=== PATIENT | male | born 1955 | race Caucasian/White ===

== ENCOUNTER 2017-04-04 16:27 | Emergency (ER) | payer MEDICAID ==
[2017-04-04] MEDS ORDERED: methylPREDNISolone Sodium Succinate 125 MG/2 ML SDV IVPUSH ONE (16:50)
[2017-04-04] MEDS ORDERED: Albuterol/Ipratropium 3.0-0.5 MG/3 ML Neb Soln NEB ONE (16:50)
--- NOTE | 2017-04-04 17:13 | EDM.PDOC ---
<SridharZaire - Last Filed: 04/04/17 22:54> ED HPI GENERAL MEDICAL PROBLEM - General Chief Complaint: Respiratory Problem Stated Complaint: HIGH BP Time Seen by Provider: 04/04/17 16:27 Source of Information: Reports: Patient, Family, Old Records - History of Present Illness INITIAL COMMENTS - FREE TEXT/NARRATIVE: Interval Note on Gregor Wheeler: Seen in ED per Dr Burris for management of week long chest congestion and Clinic reported elevated BP. He had taken ASA 160 mg today po with maintenance meds. He was given an Albuteral Neb and screening labs , with some improvement in chest congestion. His BP 177/125 with VR 137 on admission to ED has not improved following labetolol 150 mg in divided doses over the 90 min. 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 A subsequent Troponin I 0.022, BNP 2154, TSH 3.19. Case was discussed with Dr. Chen-hospitalist and Dr Max-Cardiology regarding possible STEMI, and he will be transferred by ground ambulance to Cardiology for possible PCI. All questions were addressed with the family. - Related Data Allergies Allergy/AdvReac Type Severity Reaction Status Date / Time No Known Allergies Allergy Verified 04/04/17 18:23 Home Meds: Home Meds Albuterol [Proair HFA] 2 puff INH Q4HR PRN 08/16/15 [History] Lisinopril [Prinivil] 5 mg PO DAILY 08/16/15 [History] Oxybutynin Chloride [Oxybutynin Chloride ER] 10 mg PO DAILY 08/16/15 [History] Sertraline HCl 200 mg PO DAILY 08/16/15 [History] Simvastatin 40 mg PO BEDTIME 08/16/15 [History] Tiotropium [Spiriva Handihaler] 1 dose INH DAILY 08/16/15 [History] Aspirin [Ecotrin] 162 mg PO DAILY 03/27/16 [History] Multivitamin with Minerals [Multiple Vitamin] 1 tab PO DAILY 03/27/16 [History] ED ROS GENERAL - Review of Systems Review Of Systems: ROS reveals no pertinent complaints other than HPI. ED EXAM, GENERAL - Physical Exam Exam: See Below Exam Limited By: No Limitations General Appearance: Alert, WD/WN, No Apparent Distress Eye Exam: Bilateral Eye: EOMI, Normal Inspection, PERRL Ears: Normal External Exam Nose: Normal Inspection Throat/Mouth: Normal Inspection, Normal Oropharynx Head: Atraumatic Neck: Normal Inspection, Supple, Non-Tender, Full Range of Motion Respiratory/Chest: No Respiratory Distress, No Accessory Muscle Use, Chest Non- Tender, Decreased Breath Sounds Cardiovascular: Normal Peripheral Pulses, No Edema, No Murmur, No Rub, Tachycardia GI/Abdominal: Normal Bowel Sounds, Soft, Non-Tender, No Organomegaly, No Distention, No Mass, Other (corpulent) (Male) Exam: Normal Inspection Rectal (Males) Exam: Deferred Back Exam: Normal Inspection Extremities: Normal Inspection Neurological: Alert, Oriented, CN II-XII Intact, No Motor/Sensory Deficits Psychiatric: Normal Affect, Normal Mood Skin Exam: Warm, Dry Lymphatic: No Adenopathy Course - Vital Signs Last Recorded V/S: Last Vital Signs Temp 36.1 C 04/04/17 22:00 Pulse 121 H 04/04/17 22:00 Resp 18 04/04/17 22:00 BP 150/118 H 04/04/17 22:00 Pulse Ox 95 04/04/17 22:00 - Orders/Labs/Meds Orders: Active Orders 24 hr Category Date Time Status EKG Documentation Completion [RC] ASDIRECTED Care 04/04/17 20:36 Active EKG 12 Lead [EK] Routine Ther 04/04/17 20:36 Ordered Labs: Laboratory Tests 04/04/17 04/04/17 04/04/17 Range/Units 17:00 17:00 17:00 WBC 8.0 (4.5-12.0) X10-3/uL RBC 5.45 (4.30-5.75) x10(6)uL Hgb 15.0 (11.5-15.5) g/dL Hct 45.8 (30.0-51.3) % MCV 84.0 (80-96) fL MCH 27.5 L (27.7-33.6) pg MCHC 32.7 (32.2-35.4) g/dL RDW 14.7 (11.5-15.5) % Plt Count 207 (125-369) X10(3)uL MPV 8.6 (7.4-10.4) fL Neut % (Auto) 76.9 (46-82) % Lymph % (Auto) 16.8 (13-37) % Toombs % (Auto) 5.6 (4-12) % Eos % (Auto) 0 L (1.0-5.0) % Baso % (Auto) 0 (0-2) % Neut # (Auto) 6.3 (1.6-8.3) # Lymph # (Auto) 1.3 (0.6-5.0) # Toombs # (Auto) 0.4 (0.0-1.3) # Eos # (Auto) 0.0 (0.0-0.8) # Baso # (Auto) 0.0 (0.0-0.2) # Sodium 140 (135-145) mmol/L Potassium 3.9 (3.5-5.3) mmol/L Chloride 102 (100-110) mmol/L Carbon Dioxide 28 (21-32) mmol/L BUN 12 (7-18) mg/dL Creatinine 0.8 (0.70-1.30) mg/dL Est Cr Clr Drug Dosing 92.63 mL/min Estimated GFR (MDRD) > 60 (>60) BUN/Creatinine Ratio 15.0 (9-20) Glucose 110 (80-116) mg/dL Calcium 9.4 (8.6-10.2) mg/dL Troponin I 0.022 (<0.017-0.056) ng/mL NT-Pro-B Natriuret Pep 2154 H* (<=125) pg/mL TSH, Ultra Sensitive 3.19 (0.36-3.74) IU/mL Urine Color (YELLOW) Urine Appearance (CLEAR) Urine pH (5.0-6.5) Ur Specific [place] (1.010-1.025) Urine Protein (NEGATIVE) mg/dL Urine Glucose (UA) (NEGATIVE) mg/dL Urine Ketones (NEGATIVE) mg/dL Urine Occult Blood (NEGATIVE) Urine Nitrite (NEGATIVE) Urine Bilirubin (NEGATIVE) Urine Urobilinogen (NEGATIVE) mg/dL Ur Leukocyte Esterase (NEGATIVE) Urine RBC (0) Urine WBC (0) Ur Squamous Epith Cells (NS,R,O) Urine Bacteria (NS) Urine Mucus (NS) 04/04/ Range/Units 18:30 WBC (4.5-12.0) X10-3/uL RBC (4.30-5.75) x10(6)uL Hgb (11.5-15.5) g/dL Hct (30.0-51.3) % MCV (80-96) fL MCH (27.7-33.6) pg MCHC (32.2-35.4) g/dL RDW (11.5-15.5) % Plt Count (125-369) X10(3)uL MPV (7.4-10.4) fL Neut % (Auto) (46-82) % Lymph % (Auto) (13-37) % [place]ombs % (Auto) (4-12) % Eos % (Auto) (1.0-5.0) % Baso % (Auto) (0-2) % Neut # (Auto) (1.6-8.3) # Lymph # (Auto) (0.6-5.0) # Toombs # (Auto) (0.0-1.3) # Eos # (Auto) (0.0-0.8) # Baso # (Auto) (0.0-0.2) # Sodium (135-145) mmol/L Potassium (3.5-5.3) mmol/L Chloride (100-110) mmol/L Carbon Dioxide (21-32) mmol/L BUN (7-18) mg/dL Creatinine (0.70-1.30) mg/dL Est Cr Clr Drug Dosing mL/min Estimated GFR (MDRD) (>60) BUN/Creatinine Ratio (9-20) Glucose (80-116) mg/dL Calcium (8.6-10.2) mg/dL Troponin I (<0.017-0.056) ng/mL NT-Pro-B Natriuret Pep (<=125) pg/mL TSH, Ultra Sensitive (0.36-3.74) IU/mL Urine Color Yellow (YELLOW) Urine Appearance Clear (CLEAR) Urine pH 5.0 (5.0-6.5) Ur Specific [place] 1.020 (1.010-1.025) Urine Protein Trace (NEGATIVE) mg/dL Urine Glucose (UA) Normal (NEGATIVE) mg/dL Urine Ketones Negative (NEGATIVE) mg/dL Urine Occult Blood Negative (NEGATIVE) Urine Nitrite Negative (NEGATIVE) Urine Bilirubin Small H (NEGATIVE) Urine Urobilinogen 4 H (NEGATIVE) mg/dL Ur Leukocyte Esterase Negative (NEGATIVE) Urine RBC 0-5 (0) Urine WBC 0-5 (0) Ur Squamous Epith Cells Rare (NS,R,O) Urine Bacteria Few H (NS) Urine Mucus Moderate H (NS) Meds: Medications Discontinued Medications Generic Name Dose Route Start Last Admin Trade Name Freq PRN Reason Stop Dose Admin Albuterol/Ipratropium 3 ml 04/04/17 16:50 04/04/17 17:24 Duoneb 3.0-0.5 Mg/3 Ml NEB 04/04/17 16:51 3 ml ONETIME ONE Administration Labetalol HCl 10 mg 04/04/17 18:33 04/04/17 18:54 Normodyne IVPUSH 04/04/17 18:34 10 mg ONETIME STA Administration Protocol Labetalol HCl 20 mg 04/04/17 19:30 04/04/17 19:39 Normodyne IVPUSH 04/04/17 19:31 20 mg ONETIME ONE Administration Protocol Labetalol HCl 40 mg 04/04/17 20:10 04/04/17 20:30 Normodyne IVPUSH 04/04/17 20:11 40 mg ONETIME ONE Administration Protocol Labetalol HCl 40 mg 04/04/17 21:14 04/04/17 21:16 Normodyne IVPUSH 04/04/17 21:15 40 mg ONETIME ONE Administration Protocol Methylprednisolone Sodium Succinate 125 mg 04/04/17 16:50 04/04/17 17:22 Solu-Medrol IVPUSH 04/04/17 16:51 125 mg ONETIME ONE Administration Sodium Chloride 10 ml 04/04/17 16:46 04/04/17 21:17 Saline Flush FLUSH 10 ml ASDIRECTED PRN Administration Keep Vein Open Departure - Departure Time of Disposition: 22:30 Disposition: DC/Tfer to Other 70 Condition: Poor Clinical Impression: STEMI (ST elevation myocardial infarction) - Discharge Information Referrals: Nathan Monteiro MD [Primary Care Provider] - Forms: ED Department Discharge - Problem List & Annotations (1) STEMI (ST elevation myocardial infarction) SNOMED Code(s): 173145410 Code(s): I21.3 - ST ELEVATION (STEMI) MYOCARDIAL INFARCTION OF [facility] SITE Status: Acute Annotation/Comment:: 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 QualifierTitle: Involved coronary artery: unspecified coronary artery Qualified Code(s): I21.3 - ST elevation (STEMI) myocardial infarction of unspecified site - Problem List Review Problem List Initiated/Reviewed/Updated: Yes - Assessment/Plan Plan: Follow up Cardiology. <Yovanny Burris Elke - Last Filed: 04/05/17 20:35> ED HPI GENERAL MEDICAL PROBLEM - General Source of Information: Reports: Patient, Family Past Medical History HEENT History: Reports: Cataract Other HEENT History: POSTERIOR VITREOUS DETATCHMENT, DRY EYES, PSUEDOPHAKIA Cardiovascular History: Reports: High Cholesterol, Hypertension, Other (See Below) Other Cardiovascular History: ASD Respiratory History: Reports: Asthma, COPD, SOB Genitourinary History: Reports: BPH, Urinary Incontinence Psychiatric History: Reports: Addiction, Depression Endocrine/Metabolic History: Reports: Obesity/BMI 30+ - Past Surgical History HEENT Surgical History: Reports: Cataract Surgery Cardiovascular Surgical History: Reports: Other (See Below) GI Surgical History: Reports: Hernia, Abdominal Social & Family History - Tobacco Use Smoking Status *Q: Former Smoker Month Tobacco Last Used: MAR 17, 2015 - Caffeine Use Caffeine Use: Reports: Coffee, Soda - Alcohol Use Days Per Week of Alcohol Use: 7 Number of Drinks Per Day: 2 Total Drinks Per Week: 14 - Recreational Drug Use Recreational Drug Use: No Course - Vital Signs Text/Narrative:: Interval Note on Gregor Wheeler: Seen in ED per Dr Burris for management of week long chest congestion and Clinic reported elevated BP. He had taken ASA 160 mg today po with maintenance meds. He was given an Albuteral Neb and screening labs , with some improvement in chest congestion. His BP 177/125 with VR 137 on admission to ED has not improved following labetolol 150 mg in divided doses over the 90 min. 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 A subsequent Troponin I 0.022, BNP 2154, TSH 3.19. Case was discussed with Dr. Chen-hospitalist and Dr Max-Cardiology regarding possible STEMI, and he will be transferred by ground ambulance to Cardiology for possible PCI. All questions were addressed with the family. Labs: Troponin 1.022 Impression: COPD, HTN, Met lung CT as per CT chest from 03/27/2017, Reexam: improved, pt refused to be admitted, refused to be transferred to a oncologist. Tx: Labetolol Reexam: Pt did not improved Pt was signed out to Dr. Waller at 7 pm due to shift changes Last Recorded V/S: Last Vital Signs Temp 36.1 C 04/04/17 22:00 Pulse 121 H 04/04/17 22:00 Resp 18 04/04/17 22:00 BP 150/118 H 04/04/17 22:00 Pulse Ox 95 04/04/17 22:00 - Orders/Labs/Meds Labs: Laboratory Tests 04/04/17 04/04/17 04/04/17 Range/Units 17:00 17:00 17:00 WBC 8.0 (4.5-12.0) X10-3/uL RBC 5.45 (4.30-5.75) x10(6)uL Hgb 15.0 (11.5-15.5) g/dL Hct 45.8 (30.0-51.3) % MCV 84.0 (80-96) fL MCH 27.5 L (27.7-33.6) pg MCHC 32.7 (32.2-35.4) g/dL RDW 14.7 (11.5-15.5) % Plt Count 207 (125-369) X10(3)uL MPV 8.6 (7.4-10.4) fL Neut % (Auto) 76.9 (46-82) % Lymph % (Auto) 16.8 (13-37) % [place] % (Auto) 5.6 (4-12) % Eos % (Auto) 0 L (1.0-5.0) % Baso % (Auto) 0 (0-2) % Neut # (Auto) 6.3 (1.6-8.3) # Lymph # (Auto) 1.3 (0.6-5.0) # [place] # (Auto) 0.4 (0.0-1.3) # Eos # (Auto) 0.0 (0.0-0.8) # Baso # (Auto) 0.0 (0.0-0.2) # Sodium 140 (135-145) mmol/L Potassium 3.9 (3.5-5.3) mmol/L Chloride 102 (100-110) mmol/L Carbon Dioxide 28 (21-32) mmol/L BUN 12 (7-18) mg/dL Creatinine 0.8 (0.70-1.30) mg/dL Est Cr Clr Drug Dosing 92.63 mL/min Estimated GFR (MDRD) > 60 (>60) BUN/Creatinine Ratio 15.0 (9-20) Glucose 110 (80-116) mg/dL Calcium 9.4 (8.6-10.2) mg/dL Troponin I 0.022 (<0.017-0.056) ng/mL NT-Pro-B Natriuret Pep 2154 H* (<=125) pg/mL TSH, Ultra Sensitive 3.19 (0.36-3.74) IU/mL Urine Color (YELLOW) Urine Appearance (CLEAR) Urine pH (5.0-6.5) Ur Specific [place] (1.010-1.025) Urine Protein (NEGATIVE) mg/dL Urine Glucose (UA) (NEGATIVE) mg/dL Urine Ketones (NEGATIVE) mg/dL Urine Occult Blood (NEGATIVE) Urine Nitrite (NEGATIVE) Urine Bilirubin (NEGATIVE) Urine Urobilinogen (NEGATIVE) mg/dL Ur Leukocyte Esterase (NEGATIVE) Urine RBC (0) Urine WBC (0) Ur Squamous Epith Cells (NS,R,O) Urine Bacteria (NS) Urine Mucus (NS) 04/04/17 Range/Units 18:30 WBC (4.5-12.0) X10-3/uL RBC (4.30-5.75) x10(6)uL Hgb (11.5-15.5) g/dL Hct (30.0-51.3) % MCV (80-96) fL MCH (27.7-33.6) pg MCHC (32.2-35.4) g/dL RDW (11.5-15.5) % Plt Count (125-369) X10(3)uL MPV (7.4-10.4) fL Neut % (Auto) (46-82) % Lymph % (Auto) (13-37) % [place] % (Auto) (4-12) % Eos % (Auto) (1.0-5.0) % Baso % (Auto) (0-2) % Neut # (Auto) (1.6-8.3) # Lymph # (Auto) (0.6-5.0) # [place] # (Auto) (0.0-1.3) # Eos # (Auto) (0.0-0.8) # Baso # (Auto) (0.0-0.2) # Sodium (135-145) mmol/L Potassium (3.5-5.3) mmol/L Chloride (100-110) mmol/L Carbon Dioxide (21-32) mmol/L BUN (7-18) mg/dL Creatinine (0.70-1.30) mg/dL Est Cr Clr Drug Dosing mL/min Estimated GFR (MDRD) (>60) BUN/Creatinine Ratio (9-20) Glucose (80-116) mg/dL Calcium (8.6-10.2) mg/dL Troponin I (<0.017-0.056) ng/mL NT-Pro-B Natriuret Pep (<=125) pg/mL TSH, Ultra Sensitive (0.36-3.74) IU/mL Urine Color Yellow (YELLOW) Urine Appearance Clear (CLEAR) Urine pH 5.0 (5.0-6.5) Ur Specific [place] 1.020 (1.010-1.025) Urine Protein Trace (NEGATIVE) mg/dL Urine Glucose (UA) Normal (NEGATIVE) mg/dL Urine Ketones Negative (NEGATIVE) mg/dL Urine Occult Blood Negative (NEGATIVE) Urine Nitrite Negative (NEGATIVE) Urine Bilirubin Small H (NEGATIVE) Urine Urobilinogen 4 H (NEGATIVE) mg/dL Ur Leukocyte Esterase Negative (NEGATIVE) Urine RBC 0-5 (0) Urine WBC 0-5 (0) Ur Squamous Epith Cells Rare (NS,R,O) Urine Bacteria Few H (NS) Urine Mucus Moderate H (NS)
[2017-04-04] MEDS: Sodium Chloride 0.9% 10 ML Syringe FLUSH PRN ×4 (17:21→21:17)
[2017-04-04] MEDS ORDERED: Labetalol 20 MG/4 ML Syringe IVPUSH STA (18:33)
[2017-04-04] MEDS ORDERED: Labetalol 20 MG/4 ML Syringe IVPUSH ONE ×3 (19:30→21:14)
[2017-04-04 23:10] VITALS: BP 150/118
== END 2017-04-04 22:40 | disposition other institution (70) ==
LOC: FB.ED 16:27
DX: I21.3 ST elevation (STEMI) myocardial infarction of unspecified site (principal); I10 Essential (primary) hypertension; E78.00 Pure hypercholesterolemia, unspecified; J44.9 Chronic obstructive pulmonary disease, unspecified; F32.9 Major depressive disorder, single episode, unspecified; Z87.891 Personal history of nicotine dependence; Z79.82 Long term (current) use of aspirin; Z79.899 Other long term (current) drug therapy
CPT/HCPCS: 36415; 80048; 81001; 83880; 84443; 84484; 85025; 93005; 94640; 96374; 96375; 96376; 99284; J2930; J7050; J7620; 93010

== ENCOUNTER 2017-04-22 18:52 | Emergency (ER) | payer BC, MEDICAID, OTHER ==
[2017-04-22] MEDS ORDERED: Albuterol/Ipratropium 3.0-0.5 MG/3 ML Neb Soln NEB ONE (19:19)
--- NOTE | 2017-04-22 19:26 | EDM.PDOC ---
ED HPI GENERAL MEDICAL PROBLEM - General Chief Complaint: Respiratory Problem Stated Complaint: DIFFICULTY BREATHING Time Seen by Provider: 04/22/17 19:10 Source of Information: Reports: Patient, Old Records, RN History Limitations: Reports: No Limitations - History of Present Illness INITIAL COMMENTS - FREE TEXT/NARRATIVE: 61 yo male former smoker here with several days of cough and increased SOB. No fever. Cough is minimally productive. Has inhalers that he has been using. Has a dx of lung CA and missed his follow up appt today in [place] due to the weather. Onset: Gradual Onset Date: 04/20/17 Duration: Day(s):, Constant Location: Reports: Chest Severity: Moderate Improves with: Reports: Rest Worsens with: Reports: Movement Context: Reports: Other (Hx of chronic lung dz and lung CA) Associated Symptoms: Reports: Cough, Shortness of Breath. Denies: Fever/Chills Treatments MANAGER SOLAR: Reports: Other (see below) (none) - Related Data Allergies Allergy/AdvReac Type Severity Reaction Status Date / Time No Known Allergies Allergy Verified 04/04/17 18:23 Home Meds: Home Meds Albuterol [Proair HFA] 2 puff INH Q4HR PRN 08/16/15 [History] Lisinopril [Prinivil] 5 mg PO DAILY 08/16/15 [History] Oxybutynin Chloride [Oxybutynin Chloride ER] 10 mg PO DAILY 08/16/15 [History] Sertraline HCl 200 mg PO DAILY 08/16/15 [History] Simvastatin 40 mg PO BEDTIME 08/16/15 [History] Tiotropium [Spiriva Handihaler] 1 dose INH DAILY 08/16/15 [History] Multivitamin with Minerals [Multiple Vitamin] 1 tab PO DAILY 03/27/16 [History] predniSONE [Prednisone] 20 mg PO BID #10 tablet 04/22/17 [Rx] Past Medical History HEENT History: Reports: Cataract Other HEENT History: POSTERIOR VITREOUS DETATCHMENT, DRY EYES, PSUEDOPHAKIA Cardiovascular History: Reports: High Cholesterol, Hypertension, Other (See Below) Other Cardiovascular History: ASD Respiratory History: Reports: Asthma, COPD, SOB Genitourinary History: Reports: BPH, Urinary Incontinence Psychiatric History: Reports: Addiction, Depression Endocrine/Metabolic History: Reports: Obesity/BMI 30+ - Past Surgical History HEENT Surgical History: Reports: Cataract Surgery Cardiovascular Surgical History: Reports: Other (See Below) GI Surgical History: Reports: Hernia, Abdominal Social & Family History - Family History Family Medical History: Unobtainable - Tobacco Use Smoking Status *Q: Former Smoker Month Tobacco Last Used: MAR 17, 2015 - Caffeine Use Caffeine Use: Reports: Coffee, Soda - Alcohol Use Days Per Week of Alcohol Use: 7 Number of Drinks Per Day: 2 Total Drinks Per Week: 14 - Recreational Drug Use Recreational Drug Use: No ED ROS GENERAL - Review of Systems Review Of Systems: See Below Constitutional: Reports: No Symptoms HEENT: Reports: No Symptoms Respiratory: Reports: Shortness of Breath, Wheezing, Cough, Sputum (minimal) Cardiovascular: Reports: No Symptoms GI/Abdominal: Reports: No Symptoms : Reports: No Symptoms Musculoskeletal: Reports: No Symptoms Skin: Reports: No Symptoms Neurological: Reports: No Symptoms ED EXAM, GENERAL - Physical Exam Exam: See Below Exam Limited By: Other (Looks older than his stated age.) General Appearance: Alert, WD/WN, No Apparent Distress Eye Exam: Bilateral Eye: Normal Inspection Ears: Normal External Exam, Normal Canal, Hearing Grossly Normal Ear Exam: Bilateral Ear: Auricle Normal, Canal Normal, TM normal Nose: Normal Inspection, Normal Mucosa Throat/Mouth: Normal Inspection, Normal Lips, Normal Oropharynx, Normal Voice, No Airway Compromise Head: Atraumatic, Normocephalic Neck: Normal Inspection, Supple, Non-Tender Respiratory/Chest: No Respiratory Distress, No Accessory Muscle Use, Rhonchi, Wheezing. No: Accessory Muscle Use, Retractions Cardiovascular: Regular Rate, Rhythm, No Edema GI/Abdominal: Normal Bowel Sounds, Soft, Non-Tender, No Distention Back Exam: Normal Inspection Extremities: Normal Inspection, Normal Range of Motion, Non-Tender Neurological: Alert, Oriented, CN II-XII Intact, Normal Cognition Psychiatric: Normal Affect, Normal Mood Skin Exam: Warm, Dry, Intact, Normal Color, No Rash Lymphatic: No Adenopathy Course - Vital Signs Text/Narrative:: duoneb-modest improvement. Last Recorded V/S: Last Vital Signs Temp 36.0 C 04/22/17 19:00 Pulse 72 04/22/17 19:00 Resp 24 H 04/22/17 19:00 BP 119/87 04/22/17 19:00 Pulse Ox 96 04/22/17 19:00 - Orders/Labs/Meds Orders: Active Orders 24 hr Category Date Time Status RT Aerosol Therapy [RC] ASDIRECTED Care 04/22/17 19:19 Active Chest 2V [CR] Stat Exams 04/22/17 20:23 Taken Labs: Laboratory Tests 04/22/17 Range/Units 19:40 WBC 8.6 (4.5-12.0) X10-3/uL RBC 5.59 (4.30-5.75) x10(6)uL Hgb 15.1 (11.5-15.5) g/dL Hct 46.7 (30.0-51.3) % MCV 83.5 (80-96) fL MCH 27.0 L (27.7-33.6) pg MCHC 32.3 (32.2-35.4) g/dL RDW 14.6 (11.5-15.5) % Plt Count 215 (125-369) X10(3)uL Meds: Medications Discontinued Medications Generic Name Dose Route Start Last Admin Trade Name Freq PRN Reason Stop Dose Admin Albuterol/Ipratropium 3 ml 04/22/17 19:19 Duoneb 3.0-0.5 Mg/3 Ml NEB 04/22/17 19:20 ONETIME ONE Prednisone 20 mg 04/22/17 20:37 Prednisone PO 04/22/17 20:38 ONETIME ONE - Radiology Interpretation Free Text/Narrative:: CXR-no pneumonia, lung CA present. Departure - Departure Time of Disposition: 20:45 Disposition: Home, Self-Care 01 Condition: Fair Clinical Impression: Bronchospasm, Viral respiratory illness - Discharge Information Prescriptions: predniSONE [Prednisone] 20 mg PO BID #10 tablet Referrals: Nathan Monteiro MD [Primary Care Provider] - Forms: ED Department Discharge - My Orders Last 24 Hours: My Active Orders 04/22/17 19:19 RT Aerosol Therapy [RC] ASDIRECTED 04/22/17 20:23 Chest 2V [CR] Stat - Assessment/Plan Last 24 Hours: My Active Orders 04/22/17 19:19 RT Aerosol Therapy [RC] ASDIRECTED 04/22/17 20:23 Chest 2V [CR] Stat
[2017-04-22] MEDS ORDERED: predniSONE 20 MG Tab PO ONE (20:37)
[2017-04-22 22:42] VITALS: BP 132/80
--- NOTE | 2017-04-23 10:51 | CR ---
INDICATION: Cough, shortness of breath. CHEST: AP and lateral views of the chest 04/22/[address] scan of 03/27/2017 and chest x-ray of 08/16/2015, and revealed increased size of a lung mass in the right mid lung field with enlarged node in the infrahilar area on the right also. There also now appears to be enlargement of an azygous node at the mediastinum on the right. 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 This was noted on the previous CT scan of 03/27/2017. There does appear to be some increase in size in the main mass, compared with the previous study. No other change or new acute process was identified. Heavy markings are again noted in the lower lung rodríguez, likely fibrotic in nature, but making it difficult to exclude minimal patchy bronchopneumonia. The heart is enlarged, as previously, and the aorta is slightly calcified in the arch area. Prominent AP diameter, hyperaeration, and somewhat flattened diaphragm leaves on the lateral view suggests COPD, as previously. IMPRESSION: 1. No definite acute process. 2. Cannot exclude patchy bronchopneumonia in the lung bases versus fibrosis in that area. 3. Progressive increase in size of a right mid lung field mass, compatible with malignancy. It now measures approximately 41 x 30 mm. A right hilar node measures 27 mm. An azygous node is also noted to be enlarged. 4. COPD. 5. ASHD with cardiomegaly. MTDD
== END 2017-04-22 20:50 | disposition home or self-care (01) ==
LOC: FB.ED 18:52
DX: J98.01 Acute bronchospasm (principal); B34.9 Viral infection, unspecified; E66.9 Obesity, unspecified; I10 Essential (primary) hypertension; E78.00 Pure hypercholesterolemia, unspecified; Z79.899 Other long term (current) drug therapy; Z87.891 Personal history of nicotine dependence
CPT/HCPCS: 36415; 71046; 85027; 87804; 87807; 94640; 99284; A9270; J7620

== ENCOUNTER 2017-06-20 18:58 | Observation (INO) | payer BC ==
[2017-06-20] MEDS: Sodium Chloride 0.9% 10 ML Syringe FLUSH PRN ×3 (19:45→23:48)
[2017-06-20] MEDS ORDERED: Nitroglycerin 0.4 MG Tab.SL SL PRN (19:50)
[2017-06-20] MEDS ORDERED: Aspirin 81 MG Tab.Chew PO ONE (20:01)
[2017-06-20] MEDS ORDERED: methylPREDNISolone Sodium Succinate 125 MG/2 ML SDV IVPUSH SCH (20:45)
[2017-06-20] MEDS ORDERED: Levofloxacin/Dextrose 5%-Water 500 MG in Premix Bag 1 BAG IV SCH (20:45)
[2017-06-20] MEDS ORDERED: Non-Formulary Medication 1 Each (Apixaban 5 MG) PO SCH (21:00)
[2017-06-20] MEDS ORDERED: Sertraline 100 MG Tab PO SCH (21:00)
[2017-06-20] MEDS ORDERED: Non-Formulary Medication 1 Each (Fluticasone/Salmeterol [Advair 250-50 Diskus] 1 PUFF) INH SCH (21:00)
[2017-06-20] MEDS ORDERED: atorvaSTATin 20 MG Tab PO SCH (21:00)
[2017-06-20] MEDS: Albuterol/Ipratropium 3.0-0.5 MG/3 ML Neb Soln NEB PRN (21:10)
--- NOTE | 2017-06-21 04:57 | ER ---
DATE SEEN: 06/20/2017 CHIEF COMPLAINT: Shortness of breath. HISTORY OF PRESENT ILLNESS: This is a 61-year-old male with shortness of breath, cough, wheezing, and tightness over a period of 2 days. He initially stated it started yesterday night and then later he stated may be this morning. [id number] in intensity. He went to the clinic where he was sent here for further evaluation. There is no radiation of the pain. He has had nonproductive cough and a low-grade fever as well. He has a history of COPD, lung mass, possibly neuroendocrine cancer with a primary in the lung for which he has had no treatment. He also has a history of nonobstructive CAD and was admitted at [facility] in March where an angiogram showed no obstruction. He had presented with similar symptoms and suspicious EKG. He also has a history of atrial flutter and had cardioversion in April and is currently on Eliquis. ALLERGIES: None. REVIEW OF SYSTEMS: All other systems were not contributory. PAST MEDICAL HISTORY: COPD, hypertension, CAD, nonischemic cardiomyopathy. SOCIAL HISTORY: He quit smoking months ago. PHYSICAL EXAMINATION: GENERAL: He is not in any cardiopulmonary distress. VITAL SIGNS: Initial blood pressure 154/97, weight 260 pounds, oxygenation 97% on 2 L, temperature 100.4. ENT: Negative. NECK: No JVD. CARDIOVASCULAR: Normal. RESPIRATORY SYSTEM: End-expiratory rhonchi. EXTREMITIES: No edema. MENTAL STATUS: Alert. LABORATORY DATA: Negative troponin. White cell count is normal with the exception of neutrophilia. EKG showed some ST changes in the inferior leads. Chest x-ray showed a mass on the right side. FINAL IMPRESSION: 1. Chronic obstructive pulmonary disease exacerbation. 2. Lung cancer, neuroendocrine. 3. Coronary artery disease, with atypical chest pain today. 4. Upper respiratory infection. PLAN: I called [facility], faxed the EKG to the lens grinder apprentice after review and his previous presentation and comparison showed no convincing evidence of ST elevation [place]. We elected to keep the patient here for observation in the ICU with the rule out protocol. We will repeat some labs in the morning and EKG and keep him on telemetry. I will do a DuSandrineb and Grace for COPD exacerbation. TIME SEEN: 1945 hours. /[id number]
[2017-06-21] MEDS: Sodium Chloride 0.9% 10 ML Syringe FLUSH PRN (05:28)
[2017-06-21] MEDS ORDERED: methylPREDNISolone Sodium Succinate 125 MG/2 ML SDV IVPUSH SCH (06:00)
[2017-06-21] MEDS: Albuterol/Ipratropium 3.0-0.5 MG/3 ML Neb Soln NEB PRN (07:25)
[2017-06-21] MEDS ORDERED: Lisinopril 20 MG Tab PO SCH (09:00)
[2017-06-21] MEDS ORDERED: Formoterol/Mometasone 200-5 MCG 8.8 GM Inhaler IH SCH (09:00)
[2017-06-21] MEDS ORDERED: Metoprolol Succinate 50 MG Tab.ER PO SCH (09:00)
[2017-06-21] MEDS ORDERED: Amiodarone 200 MG Tab PO SCH (09:00)
[2017-06-21] MEDS ORDERED: Apixaban 5 MG Tab PO SCH (09:00)
[2017-06-21] MEDS ORDERED: Oxybutynin 5 MG Tab.ER PO SCH (09:00)
[2017-06-21] MEDS ORDERED: Multivitamin Tab PO SCH (09:00)
[2017-06-21] MEDS ORDERED: Tiotropium Inhaler 18 MCG Inhalation Powder Cap Kit of 5 INH SCH (09:00)
[2017-06-21] MEDS ORDERED: Amoxicillin/Clavulanate K 875-125 MG Tab PO ONE (10:40)
--- NOTE | 2017-06-21 10:42 | PCM.HP ---
H&P History of Present Illness - General Date of Service: 06/21/17 Admit Problem/Dx: COPD exacerbation Chest pain, rule out acute myocardial infarction. Source of Information: Patient, Old Records, Provider History Limitations: Reports: No Limitations - History of Present Illness Initial Comments - Free Text/Narative: The patient is a 61-year-old male who 3 days ago on Saturday evening started feeling shortness of breath and cough. He has underlying COPD/asthma and felt like he was becoming wheezy. His nose was running. His cough is productive of clear white phlegm. He started to develop some fevers and chills yesterday and then presented to the emergency department last night. He was so wheezy he could hardly catch his breath. Any activity would make him reece and puff. He normally uses his inhaler 4 times daily and was needing to use it more than every 2 hours yesterday. He was admitted for COPD exacerbation and rule out cardiac disease because of tightness in the chest. He was started on IV Levaquin and IV Solu-Medrol. Past medical history: #1 COPD/asthma, not oxygen or steroid dependent but is on steroid inhaler, long- acting beta agonist, Spiriva. #2 hypertension. #3 nonischemic cardiomyopathy with atrial septal defect and a recent episode of atrial flutter resulting in hospital admission May 03-2017 in [place]. Patient underwent cardioversion and is currently anticoagulated with request. Patient had previous episode of chest pain in March and had angiogram which showed an ejection fraction of 50% and absolutely clean arteries. #4 benign prostatic hypertrophy #5 hyperlipidemia #6 history of alcoholism having gone through treatment and spent 3 or 4 years sober. When he got his diagnosis of cancer he felt there was no reason to maintain sobriety so he returned to alcohol use. Some days he drinks more than others. At times a pint of whiskey will last 2 days or longer. He also often has a beer or 2 a day. #7 depression which patient feels is currently in remission. #8 Renal mass which is believed to be a primary cancer which has never been biopsied. Patient is aware of this and declined further evaluation. 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 Patient saw oncology in April 2017 and at that time was advised to have chemoradiation therapy and immunotherapy. Patient felt he was well educated on this and went home to think about it and decided not to pursue further treatment. He feels as if it's his time he is ready to go. He has seen a number of family members and friends who went through chemotherapy and radiation and always felt he would never want to go through that himself. He was told by the radiation oncologist that the chemotherapy is very tolerable and likely to be successful but still does not want to go through that process. He has visited with his primary care provider about this and she has been a valuable support person to him. Social history: Patient quit smoking in March 2015. He drinks alcohol, whiskey and beer is pretty much daily. He is and lives with his . She is still working. 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 Family history: Patient's mother of breast cancer. His father of a myocardial infarction and had previously been diagnosed and treated for lung cancer. He has no children. He has one sister who is healthy. Midsternal chest region Pain Score (Numeric/FACES): 0 - Related Data Allergies/Adverse Reactions: Allergies Allergy/AdvReac Type Severity Reaction Status Date / Time No Known Allergies Allergy Verified 06/20/17 20:46 Home Medications: Home Meds Albuterol [Proair HFA] 2 puff INH Q4HR PRN 08/16/15 [History] Lisinopril [Prinivil] 20 mg PO DAILY 08/16/15 [History] Oxybutynin Chloride [Oxybutynin Chloride ER] 10 mg PO DAILY 08/16/15 [History] Sertraline HCl 200 mg PO BEDTIME 08/16/15 [History] Tiotropium [Spiriva Handihaler] 18 mcg INH DAILY 08/16/15 [History] Multivitamin with Minerals [Multiple Vitamin] 1 tab PO DAILY 03/27/16 [History] Amiodarone [Cordarone] 200 mg DAILY 06/20/17 [History] Apixaban [Eliquis] 5 mg BID 06/20/17 [History] Fluticasone/Salmeterol [Advair 250-50 Diskus] 1 puff BID 06/20/17 [History] Metoprolol Succinate [Toprol XL 50mg] 50 mg PO DAILY 06/20/17 [History] Nicotine Polacrilex [Nicotine Lozenge] 2 mg BC Q2H PRN 06/20/17 [History] Ondansetron HCl [Ondansetron] 4 mg TID PRN 06/20/17 [History] atorvaSTATin [Lipitor] 20 mg PO BEDTIME 06/20/17 [History] Albuterol/Ipratropium [DuoNeb 3.0-0.5 MG/3 ML] 3 ml NEB Q4H PRN neb 06/21/17 [ Rx] Amoxicillin/Potassium Clav [Augmentin 875-125 Tablet] 1 each PO BID 9 Days #18 tablet 06/21/17 [Rx] predniSONE [Prednisone] 20 mg PO DAILY 3 Days #6 tablet 06/21/17 [Rx] Past Medical History HEENT History: Reports: Cataract, Other (See Below) Other HEENT History: POSTERIOR VITREOUS DETATCHMENT, DRY EYES, PSUEDOPHAKIA Cardiovascular History: Reports: Afib, High Cholesterol, Hypertension, Other ( See Below) Other Cardiovascular History: ASD, had cardioversion in Apr 2017 for A fib. Respiratory History: Reports: Asthma, COPD, Pneumonia, Recurrent, SOB, Other ( See Below) Other Respiratory History: hx lung CA Gastrointestinal History: Reports: None Genitourinary History: Reports: BPH, Urinary Incontinence, Other (See Below) Other Genitourinary History: renal CA Musculoskeletal History: Reports: Fracture Other Musculoskeletal History: hx fx R foot Psychiatric History: Reports: Addiction, Depression Other Psychiatric History: hx ETOH abuse, was in tx for ETOH abuse x 1 Endocrine/Metabolic History: Reports: Obesity/BMI 30+ Oncologic (Cancer) History: Reports: Lung, Renal - Infectious Disease History Infectious Disease History: Reports: Chicken Pox, Measles, Mumps, Shingles - Past Surgical History Head Surgeries/Procedures: Reports: None HEENT Surgical History: Reports: Adenoidectomy, Cataract Surgery, Tonsillectomy Other HEENT Surgeries/Procedures: bilat cataract Cardiovascular Surgical History: Reports: Other (See Below) Other Cardiovascular Surgeries/Procedures: angiogram Respiratory Surgical History: Reports: Lung Biopsies GI Surgical History: Reports: Colonoscopy, Hernia, Abdominal Oncologic Surgical History: Reports: Other (See Below) Other Oncologic Surgeries/Procedures: biopsy lung Social & Family History - Family History Family Medical History: Noncontributory - Tobacco Use Smoking Status *Q: Former Smoker Years of Tobacco use: 40 Packs/Tins Daily: 3 Used Tobacco, but Quit: Yes Month/Year Tobacco Last Used: - Caffeine Use Caffeine Use: Reports: Coffee Other Caffeine Use: 3 cups - Alcohol Use Days Per Week of Alcohol Use: 7 Number of Drinks Per Day: 2 Total Drinks Per Week: 14 - Recreational Drug Use Recreational Drug Use: No H&P Review of Systems - Review of Systems: Review Of Systems: ROS reveals no pertinent complaints other than HPI. (Today, patient denies chest pain, no shortness of breath and less activity, cough is much improved. Wheezing much improved. No nausea, vomiting, no diarrhea.) Exam - Exam Exam: See Below - Vital Signs Vital Signs: Last Vital Signs Temp 36.9 C 06/21/17 07:50 Pulse 88 06/21/17 09:49 Resp 20 06/21/17 07:50 BP 155/93 H 06/21/17 10:04 Pulse Ox 93 L 06/21/17 10:04 Weight: 103.918 kg - Exam General: Alert, Oriented, Cooperative HEENT: PERRLA Neck: Supple Lungs: Rhonchi, Wheezing (Diffuse expiratory wheezing with some rhonchi present in the right.) Cardiovascular: Regular Rate, Regular Rhythm, Normal S1, Normal S2 GI/Abdominal Exam: Normal Bowel Sounds, Soft, Non-Tender, No Organomegaly, No Distention, No Mass (Male) Exam: Deferred Rectal (Males) Exam: Deferred Back Exam: Normal Inspection, Full Range of Motion Extremities: Normal Inspection, No Pedal Edema Skin: Warm, Dry, Intact Psychiatric: Alert, Normal Affect, Normal Mood - Patient Data Lab Results Last 24 hrs: Laboratory Results - last 24 hr 06/21/17 06/21/17 06/21/17 Range/Units 06:20 06:20 06:20 WBC 4.1 L (4.5-12.0) X10-3/uL RBC 4.92 (4.30-5.75) x10(6)uL Hgb 13.9 (11.5-15.5) g/dL Hct 42.6 (30.0-51.3) % MCV 86.5 (80-96) fL MCH 28.3 (27.7-33.6) pg MCHC 32.7 (32.2-35.4) g/dL RDW 14.6 (11.5-15.5) % Plt Count 151 (125-369) X10(3)uL MPV 9.0 (7.4-10.4) fL Add Manual Diff Yes Neutrophils % (Manual) 93 H (46-82) % Lymphocytes % (Manual) 6 L (13-37) % Monocytes % (Manual) 1 L (4-12) % Sodium 136 (135-145) mmol/L Potassium 4.2 (3.5-5.3) mmol/L Chloride 98 L (100-110) mmol/L Carbon Dioxide 27 (21-32) mmol/L BUN 9 (7-18) mg/dL Creatinine 0.8 (0.70-1.30) mg/dL Est Cr Clr Drug Dosing 92.63 mL/min Estimated GFR (MDRD) > 60 (>60) BUN/Creatinine Ratio 11.3 (9-20) Glucose 163 H (80-116) mg/dL Calcium 9.3 (8.6-10.2) mg/dL Magnesium 1.5 L (1.8-2.5) mg/dL Creatine Kinase 30 L (60-160) IU/L CK-MB (CK-2) 1.4 (0.5-5.0) ng/mL Troponin I < 0.017 L (<0.017-0.056) ng/mL Result Diagrams: 06/21/17 06:20 18 06:20 EKG INTERPRETATION EKG Date: 06/21/17 (Normal sinus rhythm, right bundle branch block, left anterior fascicular block, no ST elevation or depression or T-wave inversion. Previous ST depression in V2/V3 resolved.) *Q Meaningful Use (ADM) - VTE *Q VTE Criteria *Q: - Stroke *Q Stroke Criteria *Q: - AMI *Q AMI Criteria *Q: - Problem List (1) COPD exacerbation SNOMED Code(s): 951489232 ICD Code: J44.1 - CHRONIC OBSTRUCTIVE PULMONARY DISEASE W (ACUTE) EXACERBATION Status: Acute Current Visit: Yes Problem Details: Patient states he is about 80% of baseline. Shortness of breath much improved. No need for supplemental oxygen. Patient ready for discharge home today. We'll continue oral antibiotic therapy and oral steroids for wheezing. Given the patient's known lung cancer (see below), I anticipate the patient will be at higher risk for bacterial infection in his lung. Given the patient's CODE STATUS (DNR/DNI, see below) treatments to keep his breathing comfortable will be paramount to his overall well-being. (2) Chest pain SNOMED Code(s): 35617684 ICD Code: R07.9 - CHEST PAIN, UNSPECIFIED Status: Acute Current Visit: Yes Problem Details: He did not really have any chest pain on presentation, symptoms more consistent with tightness in the chest likely secondary to wheezing and COPD exacerbation. Given the patient's negative angiogram in March, he is very low risk for coronary artery disease. (3) Neuroendocrine carcinoma metastatic to multiple sites SNOMED Code(s): 496380431 ICD Code: C7A.8 - OTHER MALIGNANT NEUROENDOCRINE TUMORS; C7B.8 - OTHER SECONDARY NEUROENDOCRINE TUMORS Status: Acute Current Visit: Yes Problem Details: Discussed this at length with the patient today. He is well aware that treatment would likely be successful at least for a time, with chemotherapy and radiation. He understands that his prognosis for dying from lung cancer is much more likely without treatment. However, he feels confident that he wants to allow nature to take its course rather than undergoing any radiation or chemotherapy. He realizes that this is likely to cause his . Reviewed CODE STATUS and his previous advanced healthcare directive with him. If he were to get so sick he were to , he would not want CPR done to try to resuscitate him. If his breathing gets so bad that is imminent unless he is intubated , he would not want intubation. He would like measures to keep him comfortable. (4) Atrial flutter SNOMED Code(s): 9001269 ICD Code: I48.92 - UNSPECIFIED ATRIAL FLUTTER Status: Acute Current Visit : Yes Problem Details: Patient is currently anticoagulated. In sinus rhythm. Continue current medications. He'll be following up with cardiology in November and at that time they may readdress eliminating some of his medications based on his overall course with his lung cancer. Problem List Initiated/Reviewed/Updated: Yes Orders Last 24hrs: Active Orders 24 hr Category Date Time Status IS (RT) [RT Incentive Spirometry] [RC] ASDIRECTED Care 06/21/17 07:35 Active RT Aerosol Therapy [RC] .PRN Care 06/20/17 20:41 Active Ready for Discharge [RC] PER UNIT ROUTINE Care 06/21/17 10:35 Ordered Albuterol/Ipratropium [DuoNeb 3.0-0.5 MG/3 ML] Med 06/20/17 20:41 Active 3 ml NEB Q4H PRN Amiodarone [Cordarone] Med 06/21/17 09:00 Active 200 mg PO DAILY Apixaban [Eliquis] Med 06/21/17 09:00 Active 5 mg PO BID Levofloxacin/Dextrose 5%-Water [Levaquin in D5W 500 MG/ Med 06/21/17 22:00 Active 100 ML] 500 mg Premix Bag 1 bag IV Q24H Lisinopril [Prinivil] Med 06/21/17 09:00 Active 20 mg PO DAILY Metoprolol Succinate [Toprol XL] Med 06/21/17 09:00 Active 50 mg PO DAILY Mometasone/Formoterol [Dulera 200-5 MCG] Med 06/21/17 09:00 Active 2 puff IH BID Multivitamins [Tab-A-Dustin] Med 06/21/17 09:00 Active 1 tab PO DAILY Oxybutynin [Oxybutynin ER] Med 06/21/17 09:00 Active 10 mg PO DAILY Sertraline [Zoloft] Med 06/20/17 21:00 Active 200 mg PO BEDTIME Tiotropium [Spiriva HandiHaler] Med 06/21/17 09:00 Active 18 mcg INH DAILY atorvaSTATin [Lipitor] Med 06/20/17 21:00 Active 20 mg PO BEDTIME methylPREDNISolone Sod Succ [Solu-MEDROL] Med 06/21/17 06:00 Active 125 mg IVPUSH Q8H Code Status [Resuscitation Status] Routine Resus Stat 06/21/17 10:23 Ordered Medication Orders Albuterol/Ipratropium (Duoneb 3.0-0.5 Mg/3 Ml) 3 ml NEB Q4H PRN PRN Reason: Wheezing Last Admin: 06/21/17 07:25 Dose: 3 ml Admin: 06/20/17 21:10 Dose: 3 ml Amiodarone HCl (Cordarone) 200 mg PO DAILY [facility] Last Admin: 06/21/17 09:48 Dose: 200 mg Apixaban (Eliquis) 5 mg PO BID [facility] Last Admin: 06/21/17 09:48 Dose: 5 mg Atorvastatin Calcium (Lipitor) 20 mg PO BEDTIME [facility] Last Admin: 06/20/17 22:33 Dose: Levofloxacin/Dextrose 500 mg/ (Premix) 100 mls @ 100 mls/hr IV Q24H [facility] Lisinopril (Prinivil) 20 mg PO DAILY [facility] Last Admin: 06/21/17 09:48 Dose: 20 mg Methylprednisolone Sodium Succinate (Solu-Medrol) 125 mg IVPUSH Q8H [facility] Last Admin: 06/21/17 05:27 Dose: 125 mg Metoprolol Succinate (Toprol Xl) 50 mg PO DAILY [facility] Last Admin: 06/21/17 09:49 Dose: 50 mg Mometasone Furoate/Formoterol Fumar (Dulera 200-5 Mcg) 2 puff IH BID [facility] Multivitamins/Minerals/Vitamin C (Tab-A-Dustin) 1 tab PO DAILY [facility] Nitroglycerin (Nitrostat) 0.4 mg SL Q5M PRN PRN Reason: Chest Pain Last Admin: 06/20/17 19:46 Dose: 0.4 mg Oxybutynin Chloride (Oxybutynin Er) 10 mg PO DAILY [facility] Last Admin: 06/21/17 09:48 Dose: 10 mg Sertraline HCl (Zoloft) 200 mg PO BEDTIME [facility] Last Admin: 06/20/17 22:33 Dose: Sodium Chloride (Saline Flush) 10 ml FLUSH ASDIRECTED PRN PRN Reason: Keep Vein Open Last Admin: 06/21/17 05:28 Dose: 10 ml Admin: 06/20/17 23:48 Dose: 10 ml Admin: 06/20/17 22:45 Dose: 10 ml Admin: 06/20/17 19:45 Dose: 10 ml Tiotropium [place] (Spiriva Handihaler) 18 mcg INH DAILY [facility] Last Admin: 06/21/17 09:48 Dose: 1 cap
[2017-06-21] MEDS ORDERED: predniSONE 20 MG Tab PO SCH (10:45)
--- NOTE | 2017-06-21 10:58 | PCM.DCSUM1 ---
Discharge Summary - Hospital Course Free Text/Narrative:: See admission H&P. - Discharge Data Discharge Date: 06/21/17 Discharge Disposition: Home, Self-Care 01 Condition: Good - Discharge Diagnosis/Problem(s) (1) COPD exacerbation SNOMED Code(s): 692253956 ICD Code: J44.1 - CHRONIC OBSTRUCTIVE PULMONARY DISEASE W (ACUTE) EXACERBATION Status: Acute Current Visit: Yes Problem Details: Patient states he is about 80% of baseline. Shortness of breath much improved. No need for supplemental oxygen. Patient ready for discharge home today. We'll continue oral antibiotic therapy and oral steroids for wheezing. Given the patient's known lung cancer (see below), I anticipate the patient will be at higher risk for bacterial infection in his lung. Given the patient's CODE STATUS (DNR/DNI, see below) treatments to keep his breathing comfortable will be paramount to his overall well-being. (2) Chest pain SNOMED Code(s): 52797228 ICD Code: R07.9 - CHEST PAIN, UNSPECIFIED Status: Acute Current Visit: Yes Problem Details: He did not really have any chest pain on presentation, symptoms more consistent with tightness in the chest likely secondary to wheezing and COPD exacerbation. Given the patient's negative angiogram in March, he is very low risk for coronary artery disease. (3) Neuroendocrine carcinoma metastatic to multiple sites SNOMED Code(s): 361545020 ICD Code: C7A.8 - OTHER MALIGNANT NEUROENDOCRINE TUMORS; C7B.8 - OTHER SECONDARY NEUROENDOCRINE TUMORS Status: Acute Current Visit: Yes Problem Details: Discussed this at length with the patient today. He is well aware that treatment would likely be successful at least for a time, with chemotherapy and radiation. He understands that his prognosis for dying from lung cancer is much more likely without treatment. However, he feels confident that he wants to allow nature to take its course rather than undergoing any radiation or chemotherapy. He realizes that this is likely to cause his . Reviewed CODE STATUS and his previous advanced healthcare directive with him. If he were to get so sick he were to , he would not want CPR done to try to resuscitate him. If his breathing gets so bad that is imminent unless he is intubated , he would not want intubation. He would like measures to keep him comfortable. (4) Atrial flutter SNOMED Code(s): 3875462 ICD Code: I48.92 - UNSPECIFIED ATRIAL FLUTTER Status: Acute Current Visit : Yes Problem Details: Patient is currently anticoagulated. In sinus rhythm. Continue current medications. He'll be following up with cardiology in November and at that time they may readdress eliminating some of his medications based on his overall course with his lung cancer. - Patient Instructions Diet: Heart Healthy Diet Driving: May Drive Today Other/Special Instructions: Avoid alcohol. It can increase your risk of bleeding on anticoagulation and increase your risk of lung infections. - Discharge Plan Prescriptions/Med Rec: Amoxicillin/Potassium Clav [Augmentin 875-125 Tablet] 1 each PO BID 9 Days #18 tablet predniSONE [Prednisone] 20 mg PO DAILY 3 Days #6 tablet Home Medications: Home Meds Albuterol [Proair HFA] 2 puff INH Q4HR PRN 08/16/15 [History] Lisinopril [Prinivil] 20 mg PO DAILY 08/16/15 [History] Oxybutynin Chloride [Oxybutynin Chloride ER] 10 mg PO DAILY 08/16/15 [History] Sertraline HCl 200 mg PO BEDTIME 08/16/15 [History] Tiotropium [Spiriva Handihaler] 18 mcg INH DAILY 08/16/15 [History] Multivitamin with Minerals [Multiple Vitamin] 1 tab PO DAILY 03/27/16 [History] Amiodarone [Cordarone] 200 mg DAILY 06/20/17 [History] Apixaban [Eliquis] 5 mg BID 06/20/17 [History] Fluticasone/Salmeterol [Advair 250-50 Diskus] 1 puff BID 06/20/17 [History] Metoprolol Succinate [Toprol XL 50mg] 50 mg PO DAILY 06/20/17 [History] Nicotine Polacrilex [Nicotine Lozenge] 2 mg BC Q2H PRN 06/20/17 [History] Ondansetron HCl [Ondansetron] 4 mg TID PRN 06/20/17 [History] atorvaSTATin [Lipitor] 20 mg PO BEDTIME 06/20/17 [History] Albuterol/Ipratropium [DuoNeb 3.0-0.5 MG/3 ML] 3 ml NEB Q4H PRN neb 06/21/17 [ Rx] Amoxicillin/Potassium Clav [Augmentin 875-125 Tablet] 1 each PO BID 9 Days #18 tablet 06/21/17 [Rx] predniSONE [Prednisone] 20 mg PO DAILY 3 Days #6 tablet 06/21/17 [Rx] Patient Handouts: Preventing Antibiotic Resistance Forms: ED Department Discharge Referrals: PCP,Unknown [Primary Care Provider] - - Discharge Summary/Plan Comment DC Time >30 min.: Yes Discharge Summary/Plan Comment: Discharged home to follow-up with his primary care provider next week. Prednisone given orally today and 3 more days of 40 mg daily for wheezing and COPD exacerbation. The patient was given Levaquin IV here. Because of the concern with his other medications, a number of which can cause prolonged QT interval, I will discharge him on Augmentin 875 mg by mouth twice a day for 9 more days. He received the first dose here today. Of note, CODE STATUS reviewed at length with the patient and the patient is a DNR/DNI. - Patient Data Vitals - Most Recent: Last Vital Signs Temp 36.9 C 06/21/17 07:50 Pulse 88 06/21/17 09:49 Resp 20 06/21/17 07:50 BP 155/93 H 06/21/17 10:04 Pulse Ox 93 L 06/21/17 10:04 Weight - Most Recent: 103.918 kg I&O - Last 24 hours: Intake & Output 06/20/17 06/21/17 06/21/17 22:59 06:59 14:59 Output Total 275 Balance -275 Lab Results - Last 24 hrs: Laboratory Results - last 24 hr 06/21/17 06/21/17 06/21/17 Range/Units 06:20 06:20 06:20 WBC 4.1 L (4.5-12.0) X10-3/uL RBC 4.92 (4.30-5.75) x10(6)uL Hgb 13.9 (11.5-15.5) g/dL Hct 42.6 (30.0-51.3) % MCV 86.5 (80-96) fL MCH 28.3 (27.7-33.6) pg MCHC 32.7 (32.2-35.4) g/dL RDW 14.6 (11.5-15.5) % Plt Count 151 (125-369) X10(3)uL MPV 9.0 (7.4-10.4) fL Add Manual Diff Yes Neutrophils % (Manual) 93 H (46-82) % Lymphocytes % (Manual) 6 L (13-37) % Monocytes % (Manual) 1 L (4-12) % Sodium 136 (135-145) mmol/L Potassium 4.2 (3.5-5.3) mmol/L Chloride 98 L (100-110) mmol/L Carbon Dioxide 27 (21-32) mmol/L BUN 9 (7-18) mg/dL Creatinine 0.8 (0.70-1.30) mg/dL Est Cr Clr Drug Dosing 92.63 mL/min Estimated GFR (MDRD) > 60 (>60) BUN/Creatinine Ratio 11.3 (9-20) Glucose 163 H (80-116) mg/dL Calcium 9.3 (8.6-10.2) mg/dL Magnesium 1.5 L (1.8-2.5) mg/dL Creatine Kinase 30 L (60-160) IU/L CK-MB (CK-2) 1.4 (0.5-5.0) ng/mL Troponin I < 0.017 L (<0.017-0.056) ng/mL Med Orders - Current: Current Medications Albuterol/Ipratropium (Duoneb 3.0-0.5 Mg/3 Ml) 3 ml NEB Q4H PRN PRN Reason: Wheezing Last Admin: 06/21/17 07:25 Dose: 3 ml Amiodarone HCl (Cordarone) 200 mg PO DAILY [facility] Last Admin: 06/21/17 09:48 Dose: 200 mg Apixaban (Eliquis) 5 mg PO BID [facility] Last Admin: 06/21/17 09:48 Dose: 5 mg Atorvastatin Calcium (Lipitor) 20 mg PO BEDTIME [facility] Last Admin: 06/20/17 22:33 Dose: Not Given Lisinopril (Prinivil) 20 mg PO DAILY [facility] Last Admin: 06/21/17 09:48 Dose: 20 mg Metoprolol Succinate (Toprol Xl) 50 mg PO DAILY [facility] Last Admin: 06/21/17 09:49 Dose: 50 mg Mometasone Furoate/Formoterol Fumar (Dulera 200-5 Mcg) 2 puff IH BID [facility] Last Admin: 06/21/17 10:48 Dose: Not Given Multivitamins/Minerals/Vitamin C (Tab-A-Dustin) 1 tab PO DAILY [facility] Last Admin: 06/21/17 10:48 Dose: Not Given Nitroglycerin (Nitrostat) 0.4 mg SL Q5M PRN PRN Reason: Chest Pain Last Admin: 06/20/17 19:46 Dose: 0.4 mg Oxybutynin Chloride (Oxybutynin Er) 10 mg PO DAILY [facility] Last Admin: 06/21/17 09:48 Dose: 10 mg Prednisone (Prednisone) 40 mg PO WITHBREAKFAST [facility] Last Admin: 06/21/17 10:47 Dose: 40 mg Sertraline HCl (Zoloft) 200 mg PO BEDTIME [facility] Last Admin: 06/20/17 22:33 Dose: Not Given Sodium Chloride (Saline Flush) 10 ml FLUSH ASDIRECTED PRN PRN Reason: Keep Vein Open Last Admin: 06/21/17 05:28 Dose: 10 ml Tiotropium [place] (Spiriva Handihaler) 18 mcg INH DAILY [facility] Last Admin: 06/21/17 09:48 Dose: 1 cap Discontinued Medications Amoxicillin/Clavulanate Potassium (Augmentin 875 Mg/125 Mg) 1 tab PO ONETIME ONE Stop: 06/21/17 10:41 Last Admin: 06/21/17 10:47 Dose: 1 tab Aspirin (Aspirin) 324 mg PO ONETIME ONE Stop: 06/20/17 20:02 Last Admin: 06/20/17 20:03 Dose: 324 mg Levofloxacin/Dextrose 500 mg/ (Premix) 100 mls @ 100 mls/hr IV Q24H [facility] Last Admin: 06/20/17 22:43 Dose: 100 mls/hr Levofloxacin/Dextrose 500 mg/ (Premix) 100 mls @ 100 mls/hr IV Q24H [facility] Methylprednisolone Sodium Succinate (Solu-Medrol) 125 mg IVPUSH Q8H [facility] Last Admin: 06/20/17 22:41 Dose: 125 mg Methylprednisolone Sodium Succinate (Solu-Medrol) 125 mg IVPUSH Q8H [facility] Last Admin: 06/21/17 05:27 Dose: 125 mg Non-Formulary Medication (Apixaban) 5 mg PO BID [facility] Last Admin: 06/20/17 22:32 Dose: Not Given Non-Formulary Medication (Fluticasone/Salmeterol [Advair 250-50 Diskus]) 1 puff INH BID [facility] Last Admin: 06/20/17 22:33 Dose: Not Given *Q Meaningful Use (DIS) - VTE *Q VTE Criteria *Q: - Stroke *Q Stroke Criteria *Q: - AMI *Q AMI Criteria *Q:
[2017-06-21 11:24] VITALS: BP 159/92
--- NOTE | 2017-06-21 12:26 | CR ---
INDICATION: Cough. CHEST: PA and lateral views of the chest were obtained 06/20/2017 and compared with 04/22/2017 and 08/16/2015, again revealing mass densities at the right hilum, lateral to the right hilum in the mid lung field on the right and in the area of the azygos node. The azygos node mass appears to be increased in size compared with the previous examination. There appears to be slightly increased infiltration in the right lower lung field. Findings are compatible with metastatic disease, possibly with superimposed pneumonia, somewhat patchy in the middle lobe and in the right lower lobe also. These infiltrates may also be metastatic in nature. The hilar mass also appears to be increased in size on the lateral view. Findings remain compatible with COPD and ASHD, with enlargement of the heart and calcification in the aorta. Overlying EKG leads are noted. IMPRESSION: 1. 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 2. Probable superimposed pneumonia or additional metastatic disease process in the lower lung field on the right. 3. ASHD with cardiomegaly. 4. COPD. MTDD
[2017-06-21] MEDS ORDERED: Levofloxacin/Dextrose 5%-Water 500 MG in Premix Bag 1 BAG IV SCH (22:00)
== END 2017-06-21 14:15 | disposition home or self-care (01) ==
LOC: FB.ED 18:58 → FB.ICU 20:31
PROVIDERS: ADMIT Family Medicine; ATTEND Family Medicine
DX: J44.1 Chronic obstructive pulmonary disease with (acute) exacerbation (principal); R07.89 Other chest pain; C7B.8 Other secondary neuroendocrine tumors; I48.92 Unspecified atrial flutter; I10 Essential (primary) hypertension; I42.8 Other cardiomyopathies; N40.0 Benign prostatic hyperplasia without lower urinary tract symptoms; E78.5 Hyperlipidemia, unspecified; F33.40 Major depressive disorder, recurrent, in remission, unspecified; E66.9 Obesity, unspecified; I25.10 Atherosclerotic heart disease of native coronary artery without angina pectoris; Z66 Do not resuscitate; Z79.899 Other long term (current) drug therapy; Z87.891 Personal history of nicotine dependence; Z85.118 Personal history of other malignant neoplasm of bronchus and lung; Z85.53 Personal history of malignant neoplasm of renal pelvis; Z68.30 Body mass index [BMI] 30.0-30.9, adult
CPT/HCPCS: 36415; 71046; 80048; 80053; 82550; 82553; 83735; 84484; 85025; 87040; 87804; 93005; 94150; 94640; 99285; A9270; J1956; J2930; J7050; J7620; 96365; 96375; 96376; G0378